=== PATIENT | female | born 1940 | race Caucasian/White ===

== ENCOUNTER 2022-02-24 12:24 | Inpatient (IN) ==
[2022-02-24] MEDS ORDERED: DILTIAZEM 25 MG/5 ML VIAL IV STA (12:46)
[2022-02-24] MEDS: DILTIAZEM INJ 100 MG in SODIUM CHLORIDE 0.9% 100 ML IV SCH (14:06)
[2022-02-24 14:21] LABS: Bilirubin,Urine Small mg/dL (Negative); Blood, Urine Large mg/dL (Negative); Glucose,Urine (UA) Negative (Negative); Ketones,Urine Negative (Negative); Nitrite,Urine Negative (Negative); Protein,Urine 100 mg/dL (Negative); Urine Appearance Cloudy (Clear); Urine Color Yellow (Yellow); Urine Specific Gravity 1.025 (1.001-1.035); Urine pH 5.5 (4.5-8.0)
[2022-02-24 14:25] LABS: Bacteria,Urine Many /HPF (Few); RBC,Urine 16 /HPF (0-4); Squamous Epithelial Cell,Urine Many /HPF (0-10)
[2022-02-24 14:32] LABS: Barbiturates Screen,Urine Negative (Negative); Benzodiazepines Screen,Urine Negative (Negative); Cannabinoid Screen,Urine Negative (Negative); Opiate Screen,Urine Negative (Negative); Phencyclidine Screen,Urine Negative (Negative)
[2022-02-24 14:42] LABS: Basophils % 0.2 % (0.0-0.8); Hematocrit 31.4 VOL% (35.7-47.0); Immature Granulocytes % 1.3 %; Immature Granulocytes Absolute 0.29 #; Lymphocytes # 0.7 10*3/uL (1.4-4.0); Lymphocytes % 3.2 % (21.3-54.2); Mean Corpuscular HGB Conc 31.8 GM/DL (32-36); Mean Corpuscular Volume 83.3 FL (87-102); Mean Platelet Volume 10.9 FL (9.6-12.0); Monocytes # 0.4 10*3/uL (0.11-0.8); Monocytes % 1.8 % (1.7-12.7); NRBC # 0.14 10*3/uL; Neutrophils % 93.5 % (38.7-73.9); Platelet Count 533 T/CUMM (130-400); Red Blood Count 3.77 MC/CUMM (3.8-5.5); Red Cell Distribution Width 17.1 % (9.3-17.3); White Blood Count 21.6 T/CUMM (4-12)
[2022-02-24 14:53] LABS: INR 1.2; PT Patient Result 12.9 SECS (10.1-12.1); Partial Thromboplastin Time 27.6 SECS (23.7-32.9)
[2022-02-24 15:06] LABS: Band Neutrophils 10 % (0-10); Lymphocytes 1 % (20-55); Nucleated Red Blood Cells 1 /100 WBC (0-5)
[2022-02-24 15:07] LABS: Burr Cells Few; Ovalocytes Slight; Platelet Estimate Increased; Polychromasia Slight; Total Cells Counted 100
[2022-02-24] MEDS ORDERED: SODIUM CHLORIDE 0.9% 1,000 ML IV STA ×2 (15:17→16:06)
[2022-02-24] MEDS ORDERED: DEXTROSE 10% 250 ML BAG IV PRN (15:18)
[2022-02-24] MEDS ORDERED: ALBUTEROL 2.5 MG/3 ML NEB RESP TX PRN (15:18)
[2022-02-24] MEDS ORDERED: SIMETHICONE CHEW 125 MG TABLET PO PRN (15:18)
[2022-02-24] MEDS ORDERED: GLUCAGON 1 MG VIAL IM PRN (15:18)
[2022-02-24] MEDS ORDERED: ONDANSETRON 4 MG/2 ML VIAL IV PRN (15:18)
[2022-02-24] MEDS ORDERED: ALUMINUM/MAGNES/SIMETH MAX STR 30 ML UDCUP PO PRN (15:18)
[2022-02-24] MEDS ORDERED: CALCIUM CARBONATE CHEW 500 MG TABLET PO PRN (15:18)
[2022-02-24] MEDS ORDERED: LACTULOSE 20 GM/30 ML UDCUP PO PRN (15:18)
[2022-02-24 15:19] LABS: Albumin 2.5 G/DL (3.4-5.0); Bilirubin,Total 1.1 MG/DL (0.20-1.00); Calcium 8.8 MG/DL (8.5-10.1); Osmolality,Calculated 282.5 MOS/KG (273-304); Potassium 3.9 MMOL/L (3.5-5.1); Thyroid Stimulating Hormone 1.48 uIU/ml (0.358-3.74); Total Protein 6.3 G/DL (6.4-8.2)
[2022-02-24] MEDS ORDERED: ENOXAPARIN 100 MG/ML SYRINGE SUBCUT STA (15:47)
[2022-02-24] MEDS ORDERED: cefTRIAXone 1,000 MG in SODIUM CHLORIDE 0.9% 100 ML IV SCH (16:00)
[2022-02-24] MEDS ORDERED: hydrALAZINE 20 MG/1 ML VIAL IV PRN (16:03)
[2022-02-24 16:10] LABS: % Iron Saturation 5.1 % (18-50)
[2022-02-24 16:17] LABS: Folate 19.58 NG/ML (5.38-24.0)
[2022-02-24] MEDS: LACTATED RINGERS 1,000 ML IV SCH (18:44)
[2022-02-24] MEDS: DONEPEZIL 5 MG TABLET PO SCH (21:41)
[2022-02-24] MEDS: DOCUSATE SODIUM 100 MG CAPSULE PO SCH (21:41)
[2022-02-25] MEDS: LACTATED RINGERS 1,000 ML IV SCH ×3 (00:42→10:57)
[2022-02-25 05:40] LABS: Basophils % 0.1 % (0.0-0.8); Eosinophils % 0.1 % (0.00-10.9); Hemoglobin 7.2 GM/DL (12.0-16.0); Immature Granulocytes % 2.2 %; Immature Granulocytes Absolute 0.39 #; Lymphocytes % 5.8 % (21.3-54.2); Mean Corpuscular HGB Conc 32.7 GM/DL (32-36); Mean Corpuscular Volume 81.2 FL (87-102); Mean Platelet Volume 10.9 FL (9.6-12.0); Monocytes # 1.5 10*3/uL (0.11-0.8); Monocytes % 8.2 % (1.7-12.7); NRBC # 0.16 10*3/uL; Neutrophils % 83.6 % (38.7-73.9); Platelet Count 347 T/CUMM (130-400); Red Blood Count 2.71 MC/CUMM (3.8-5.5); White Blood Count 17.9 T/CUMM (4-12)
[2022-02-25] MEDS: LEVOTHYROXINE 50 MCG TABLET PO SCH (06:00)
[2022-02-25 06:04] LABS: Albumin 1.8 G/DL (3.4-5.0); Bilirubin,Direct 0.55 MG/DL (0.0-0.20); Bilirubin,Indirect 0.2 MG/DL (0.0-1.0); Bilirubin,Total 0.7 MG/DL (0.20-1.00); Total Protein 5.2 G/DL (6.4-8.2)
[2022-02-25 06:05] LABS: Blood Urea Nitrogen 73 MG/DL (7-18); Calcium 7.9 MG/DL (8.5-10.1); Carbon Dioxide 19 MMOL/L (21-32); Chloride 105 MMOL/L (98-107); Cholesterol 76 MG/DL (50-200); Glucose 79 MG/DL (74-106); HDL Cholesterol < 10 MG/DL (40-60); Osmolality,Calculated 290.1 MOS/KG (273-304); Potassium 3.1 MMOL/L (3.5-5.1); Sodium 135 MMOL/L (136-145); Triglycerides 177 MG/DL (2-150); VLDL Cholesterol 35.4 MG/DL
[2022-02-25] MEDS: POTASSIUM CHLORIDE 20 MEQ TABLET PO PRN (06:20)
[2022-02-25 06:41] LABS: Hepatitis B Core IgM Quant 0.14 Index; Hepatitis B Surface Ag Quant < 0.10 Index; Hepatitis B Surface Ag Result Non-Reactive (NonReactive); Hepatitis C Virus Ab Quant < 0.02 Index; Hepatitis C Virus Ab Result Non-Reactive (NonReactive)
[2022-02-25] MEDS ORDERED: FERRIC GLUCONATE COMPLEX 125 MG in SODIUM CHLORIDE 0.9% 100 ML IV ONE (08:20)
[2022-02-25] MEDS ORDERED: ATORVASTATIN 20 MG TABLET PO SCH (09:00)
[2022-02-25] MEDS ORDERED: ASPIRIN CHEW 81 MG TABLET PO SCH (09:00)
[2022-02-25] MEDS ORDERED: CLOPIDOGREL 75 MG TABLET PO SCH (09:00)
[2022-02-25] MEDS ORDERED: PANTOPRAZOLE 40 MG TABLET PO SCH (09:00)
[2022-02-25] MEDS: METOPROLOL TARTRATE 25 MG TABLET PO SCH ×2 (09:05→20:15)
[2022-02-25] MEDS: FENOFIBRATE 145 MG TABLET PO SCH (09:06)
[2022-02-25] MEDS: DOCUSATE SODIUM 100 MG CAPSULE PO SCH ×2 (09:06→20:15)
[2022-02-25] MEDS: amLODIPine 5 MG TABLET PO SCH (09:06)
[2022-02-25] MEDS: CHOLECALCIFEROL 1,000 UNIT TABLET PO SCH (09:09)
[2022-02-25] MEDS: POTASSIUM CHLORIDE RIDER 10 MEQ/100 ML PREMIX IV SCH ×4 (09:09→14:06)
[2022-02-25 12:08] LABS: Hematocrit 20.5 VOL% (35.7-47.0); Hemoglobin 6.5 GM/DL (12.0-16.0)
[2022-02-25] MEDS ORDERED: SODIUM CHLORIDE 0.9% 1,000 ML IV PRN (12:25)
[2022-02-25] MEDS: DILTIAZEM INJ 100 MG in SODIUM CHLORIDE 0.9% 100 ML IV SCH (14:06)
[2022-02-25] MEDS ORDERED: DICLOFENAC 1% GEL 100 GM TUBE TOP PRN (15:40)
[2022-02-25] MEDS: ACETAMINOPHEN 325 MG TABLET PO PRN (15:44)
[2022-02-25] MEDS ORDERED: cefTRIAXone 2,000 MG in SODIUM CHLORIDE 0.9% 100 ML IV SCH (16:00)
[2022-02-25] MEDS: LIDOCAINE 5% PATCH TRANSDERM SCH (18:15)
[2022-02-25 18:56] LABS: Hematocrit 22.5 VOL% (35.7-47.0); Hemoglobin 7.3 GM/DL (12.0-16.0)
[2022-02-25] MEDS: DONEPEZIL 5 MG TABLET PO SCH (20:15)
[2022-02-26] MEDS: ACETAMINOPHEN 325 MG TABLET PO PRN (01:09)
[2022-02-26] MEDS: LACTATED RINGERS 1,000 ML IV SCH ×2 (01:12→21:43)
[2022-02-26 06:25] LABS: Basophils % 0.1 % (0.0-0.8); Hematocrit 19.1 VOL% (35.7-47.0); Hemoglobin 6.5 GM/DL (12.0-16.0); Immature Granulocytes % 4.3 %; Immature Granulocytes Absolute 1.15 #; Lymphocytes # 0.7 10*3/uL (1.4-4.0); Lymphocytes % 2.7 % (21.3-54.2); Mean Corpuscular Volume 81.6 FL (87-102); Mean Platelet Volume 11.4 FL (9.6-12.0); Monocytes # 1.5 10*3/uL (0.11-0.8); Monocytes % 5.5 % (1.7-12.7); NRBC # 0.43 10*3/uL; Neutrophils % 87.4 % (38.7-73.9); Platelet Count 385 T/CUMM (130-400); Red Blood Count 2.34 MC/CUMM (3.8-5.5); Red Cell Distribution Width 16.9 % (9.3-17.3); White Blood Count 27.1 T/CUMM (4-12)
[2022-02-26] MEDS: LEVOTHYROXINE 50 MCG TABLET PO SCH (06:39)
[2022-02-26] MEDS: POTASSIUM CHLORIDE 20 MEQ TABLET PO PRN (06:39)
[2022-02-26 06:51] LABS: Calcium 7.6 MG/DL (8.5-10.1); Osmolality,Calculated 310.2 MOS/KG (273-304); Potassium 4.4 MMOL/L (3.5-5.1)
[2022-02-26] MEDS ORDERED: SODIUM CHLORIDE 0.9% 1,000 ML IV PRN ×2 (07:49→11:01)
[2022-02-26 07:53] LABS: Lymphocytes 6 % (20-55); Nucleated Red Blood Cells 2 /100 WBC (0-5); Platelet Estimate Normal; Total Cells Counted 100
[2022-02-26 08:22] LABS: Albumin 1.7 G/DL (3.4-5.0); Bilirubin,Direct 0.62 MG/DL (0.0-0.20); Bilirubin,Indirect 0.4 MG/DL (0.0-1.0); Total Protein 4.8 G/DL (6.4-8.2)
[2022-02-26] MEDS: PANTOPRAZOLE INJ 200 MG in SODIUM CHLORIDE 0.9% 250 ML IV SCH (09:22)
[2022-02-26] MEDS: CHOLECALCIFEROL 1,000 UNIT TABLET PO SCH (09:23)
[2022-02-26] MEDS: SODIUM BICARBONATE 650 MG TABLET PO SCH ×3 (09:23→21:42)
[2022-02-26] MEDS: DOCUSATE SODIUM 100 MG CAPSULE PO SCH ×2 (09:23→21:42)
[2022-02-26] MEDS: FENOFIBRATE 145 MG TABLET PO SCH (09:23)
[2022-02-26] MEDS: FERROUS SULFATE 325 MG TABLET PO SCH ×2 (09:23→21:43)
[2022-02-26] MEDS: amLODIPine 5 MG TABLET PO SCH (09:23)
[2022-02-26] MEDS: METOPROLOL TARTRATE 25 MG TABLET PO SCH ×2 (09:23→21:43)
[2022-02-26] MEDS: LIDOCAINE 5% PATCH TRANSDERM SCH (09:54)
[2022-02-26] MEDS: INSULIN LISPRO 100 UNIT/ML SUBCUT SCH ×4 (10:05→21:45)
[2022-02-26] MEDS ORDERED: INSULIN LISPRO 100 UNIT/ML SUBCUT ONE (11:02)
[2022-02-26] MEDS ORDERED: FUROSEMIDE 20 MG/2 ML VIAL IV ONE (12:00)
[2022-02-26] MEDS: MEROPENEM 500 MG in SODIUM CHLORIDE 0.9% 100 ML IV SCH ×2 (13:50→17:56)
[2022-02-26] MEDS ORDERED: AMIODARONE 200 MG TABLET PO SCH (21:00)
[2022-02-26] MEDS: DONEPEZIL 5 MG TABLET PO SCH (21:42)
[2022-02-27] MEDS: MEROPENEM 500 MG in SODIUM CHLORIDE 0.9% 100 ML IV SCH ×3 (02:09→18:03)
[2022-02-27] MEDS: LEVOTHYROXINE 50 MCG TABLET PO SCH (06:08)
[2022-02-27 06:23] LABS: Basophils # 0.1 10*3/uL (0.0-0.2); Basophils % 0.4 % (0.0-0.8); Eosinophils # 0.2 10*3/uL (0.0-0.87); Eosinophils % 0.9 % (0.00-10.9); Hematocrit 22.6 VOL% (35.7-47.0); Hemoglobin 7.6 GM/DL (12.0-16.0); Immature Granulocytes % 8.2 %; Lymphocytes # 1.8 10*3/uL (1.4-4.0); Lymphocytes % 7.5 % (21.3-54.2); Mean Corpuscular HGB Conc 33.6 GM/DL (32-36); Mean Corpuscular Volume 82.5 FL (87-102); Mean Platelet Volume 11.6 FL (9.6-12.0); Monocytes # 2.1 10*3/uL (0.11-0.8); Monocytes % 8.9 % (1.7-12.7); NRBC # 0.22 10*3/uL; Neutrophils % 74.1 % (38.7-73.9); Platelet Count 298 T/CUMM (130-400); Red Blood Count 2.74 MC/CUMM (3.8-5.5); Red Cell Distribution Width 16.7 % (9.3-17.3); White Blood Count 23.2 T/CUMM (4-12)
[2022-02-27 06:41] LABS: Calcium 7.8 MG/DL (8.5-10.1); Osmolality,Calculated 310.8 MOS/KG (273-304)
[2022-02-27 06:48] LABS: Albumin 1.5 G/DL (3.4-5.0); Bilirubin,Direct 0.44 MG/DL (0.0-0.20); Bilirubin,Indirect 0.2 MG/DL (0.0-1.0); Bilirubin,Total 0.6 MG/DL (0.20-1.00); Total Protein 4.8 G/DL (6.4-8.2)
[2022-02-27 06:53] LABS: Band Neutrophils 1 % (0-10); Eosinophils 3 % (0-10); Lymphocytes 11 % (20-55); Nucleated Red Blood Cells 1 /100 WBC (0-5); Total Cells Counted 100
[2022-02-27 06:54] LABS: Platelet Estimate Normal
[2022-02-27] MEDS: DOCUSATE SODIUM 100 MG CAPSULE PO SCH ×2 (08:42→21:15)
[2022-02-27] MEDS: FENOFIBRATE 145 MG TABLET PO SCH (08:42)
[2022-02-27] MEDS: FERROUS SULFATE 325 MG TABLET PO SCH ×2 (08:42→21:16)
[2022-02-27] MEDS: CHOLECALCIFEROL 1,000 UNIT TABLET PO SCH (08:42)
[2022-02-27] MEDS: INSULIN LISPRO 100 UNIT/ML SUBCUT SCH ×4 (08:42→21:18)
[2022-02-27] MEDS: METOPROLOL TARTRATE 25 MG TABLET PO SCH ×2 (08:42→21:16)
[2022-02-27] MEDS: PANTOPRAZOLE INJ 200 MG in SODIUM CHLORIDE 0.9% 250 ML IV SCH (08:43)
[2022-02-27] MEDS: LIDOCAINE 5% PATCH TRANSDERM SCH (08:43)
[2022-02-27] MEDS: amLODIPine 5 MG TABLET PO SCH (09:56)
[2022-02-27] MEDS ORDERED: TUBERCULIN SKIN TEST 0.1 ML SYRINGE INTRADERM ONE (10:00)
[2022-02-27] MEDS: LACTATED RINGERS 1,000 ML IV SCH (16:53)
[2022-02-27] MEDS: DONEPEZIL 5 MG TABLET PO SCH (21:16)
[2022-02-28] MEDS: MEROPENEM 500 MG in SODIUM CHLORIDE 0.9% 100 ML IV SCH ×3 (02:20→17:55)
[2022-02-28 06:07] LABS: Basophils # 0.1 10*3/uL (0.0-0.2); Basophils % 0.4 % (0.0-0.8); Eosinophils # 0.3 10*3/uL (0.0-0.87); Eosinophils % 1.3 % (0.00-10.9); Hematocrit 25.3 VOL% (35.7-47.0); Hemoglobin 8.1 GM/DL (12.0-16.0); Immature Granulocytes % 11.4 %; Immature Granulocytes Absolute 2.73 #; Lymphocytes # 1.4 10*3/uL (1.4-4.0); Lymphocytes % 5.7 % (21.3-54.2); Mean Corpuscular Volume 85.8 FL (87-102); Mean Platelet Volume 11.8 FL (9.6-12.0); Monocytes # 1.8 10*3/uL (0.11-0.8); Monocytes % 7.5 % (1.7-12.7); NRBC # 0.11 10*3/uL; Neutrophils % 73.7 % (38.7-73.9); Platelet Count 334 T/CUMM (130-400); Red Blood Count 2.95 MC/CUMM (3.8-5.5); Red Cell Distribution Width 17.6 % (9.3-17.3)
[2022-02-28 06:29] LABS: Albumin 1.8 G/DL (3.4-5.0); Bilirubin,Direct 0.28 MG/DL (0.0-0.20); Bilirubin,Indirect 0.3 MG/DL (0.0-1.0); Bilirubin,Total 0.6 MG/DL (0.20-1.00); Total Protein 5.3 G/DL (6.4-8.2)
[2022-02-28 06:30] LABS: Band Neutrophils 3 % (0-10); Hypochromia Slight; Lymphocytes 8 % (20-55); Microcytosis Slight; Nucleated Red Blood Cells 1 /100 WBC (0-5); Platelet Estimate Adequate; Total Cells Counted 100
[2022-02-28] MEDS: LEVOTHYROXINE 50 MCG TABLET PO SCH (06:36)
[2022-02-28 07:26] LABS: Calcium 8.2 MG/DL (8.5-10.1); Potassium 4.5 MMOL/L (3.5-5.1)
[2022-02-28] MEDS ORDERED: ETOMIDATE 20 MG/10 ML VIAL IV ONE (09:38)
[2022-02-28] MEDS ORDERED: propofoL 200 MG/20 ML VIAL IV ONE (09:38)
[2022-02-28] MEDS ORDERED: LIDOCAINE 2% 5 ML VIAL ONE (09:38)
[2022-02-28] MEDS: amLODIPine 5 MG TABLET PO SCH (10:38)
[2022-02-28] MEDS: DOCUSATE SODIUM 100 MG CAPSULE PO SCH ×2 (10:38→20:44)
[2022-02-28] MEDS: METOPROLOL TARTRATE 25 MG TABLET PO SCH ×2 (10:38→20:44)
[2022-02-28] MEDS: CHOLECALCIFEROL 1,000 UNIT TABLET PO SCH (10:38)
[2022-02-28] MEDS: FERROUS SULFATE 325 MG TABLET PO SCH ×2 (10:38→20:44)
[2022-02-28] MEDS: INSULIN LISPRO 100 UNIT/ML SUBCUT SCH ×4 (10:39→20:44)
[2022-02-28] MEDS: LIDOCAINE 5% PATCH TRANSDERM SCH (10:39)
[2022-02-28] MEDS: PANTOPRAZOLE INJ 200 MG in SODIUM CHLORIDE 0.9% 250 ML IV SCH (10:58)
[2022-02-28] MEDS: LACTATED RINGERS 1,000 ML IV SCH (12:25)
[2022-02-28] MEDS: FENOFIBRATE 145 MG TABLET PO SCH (12:25)
[2022-02-28] MEDS: PANTOPRAZOLE 40 MG VIAL IV SCH (20:44)
[2022-02-28] MEDS: DONEPEZIL 5 MG TABLET PO SCH (20:44)
[2022-02-28] MEDS: MENTHOL/ZINC OXIDE OINT 71 GM JAR TOP SCH (20:44)
[2022-03-01] MEDS: MEROPENEM 500 MG in SODIUM CHLORIDE 0.9% 100 ML IV SCH ×2 (02:11→12:36)
[2022-03-01 05:48] LABS: Basophils # 0.1 10*3/uL (0.0-0.2); Basophils % 0.4 % (0.0-0.8); Eosinophils # 0.4 10*3/uL (0.0-0.87); Eosinophils % 2.2 % (0.00-10.9); Hematocrit 22.3 VOL% (35.7-47.0); Hemoglobin 7.2 GM/DL (12.0-16.0); Immature Granulocytes Absolute 2.06 #; Lymphocytes # 1.3 10*3/uL (1.4-4.0); Lymphocytes % 7.6 % (21.3-54.2); Mean Corpuscular HGB Conc 32.3 GM/DL (32-36); Mean Corpuscular Volume 85.1 FL (87-102); Mean Platelet Volume 11.4 FL (9.6-12.0); Monocytes # 1.4 10*3/uL (0.11-0.8); Monocytes % 8.2 % (1.7-12.7); Neutrophils % 69.6 % (38.7-73.9); Platelet Count 353 T/CUMM (130-400); Red Blood Count 2.62 MC/CUMM (3.8-5.5); Red Cell Distribution Width 18.9 % (9.3-17.3); White Blood Count 17.1 T/CUMM (4-12)
[2022-03-01 06:09] LABS: Band Neutrophils 2 % (0-10); Eosinophils 2 % (0-10); Hypochromia Slight; Lymphocytes 9 % (20-55); Myelocytes 1 %; Total Cells Counted 100
[2022-03-01 06:10] LABS: Microcytosis 1+; Ovalocytes Slight; Polychromasia Slight
[2022-03-01 06:18] LABS: Calcium 8.2 MG/DL (8.5-10.1); Osmolality,Calculated 302.5 MOS/KG (273-304); Potassium 4.8 MMOL/L (3.5-5.1)
[2022-03-01 06:27] LABS: Albumin 1.8 G/DL (3.4-5.0); Bilirubin,Direct 0.33 MG/DL (0.0-0.20); Bilirubin,Indirect 0.3 MG/DL (0.0-1.0); Bilirubin,Total 0.6 MG/DL (0.20-1.00); Total Protein 5.3 G/DL (6.4-8.2)
[2022-03-01] MEDS: LEVOTHYROXINE 50 MCG TABLET PO SCH (06:36)
[2022-03-01] MEDS ORDERED: SODIUM CHLORIDE 0.9% 1,000 ML IV PRN (06:58)
[2022-03-01] MEDS ORDERED: FUROSEMIDE 20 MG/2 ML VIAL IV PRN (06:58)
[2022-03-01] MEDS: INSULIN LISPRO 100 UNIT/ML SUBCUT SCH ×5 (08:31→21:23)
[2022-03-01] MEDS: amLODIPine 5 MG TABLET PO SCH (09:08)
[2022-03-01] MEDS: FERROUS SULFATE 325 MG TABLET PO SCH ×2 (09:09→21:22)
[2022-03-01] MEDS: METOPROLOL TARTRATE 25 MG TABLET PO SCH ×2 (09:09→21:22)
[2022-03-01] MEDS: CHOLECALCIFEROL 1,000 UNIT TABLET PO SCH (09:09)
[2022-03-01] MEDS: DOCUSATE SODIUM 100 MG CAPSULE PO SCH ×2 (09:09→21:23)
[2022-03-01] MEDS: LIDOCAINE 5% PATCH TRANSDERM SCH (09:11)
[2022-03-01] MEDS: PANTOPRAZOLE 40 MG VIAL IV SCH ×2 (09:11→21:24)
[2022-03-01] MEDS: FENOFIBRATE 145 MG TABLET PO SCH (09:16)
[2022-03-01] MEDS: MENTHOL/ZINC OXIDE OINT 71 GM JAR TOP SCH ×2 (12:07→21:23)
[2022-03-01] MEDS: LISINOPRIL/HCTZ 20-12.5 MG TABLET PO SCH (12:51)
[2022-03-01] MEDS ORDERED: FUROSEMIDE 20 MG/2 ML VIAL IV ONE ×2 (14:53→17:54)
[2022-03-01] MEDS: DONEPEZIL 5 MG TABLET PO SCH (21:22)
[2022-03-01] MEDS: ASCORBIC ACID 500 MG TABLET PO SCH (21:23)
[2022-03-01] MEDS: CEFUROXIME 500 MG TABLET PO SCH (21:27)
[2022-03-02 06:11] LABS: Basophils # 0.1 10*3/uL (0.0-0.2); Basophils % 0.8 % (0.0-0.8); Eosinophils # 0.5 10*3/uL (0.0-0.87); Eosinophils % 3.4 % (0.00-10.9); Hematocrit 31.3 VOL% (35.7-47.0); Hemoglobin 10.2 GM/DL (12.0-16.0); Immature Granulocytes % 10.9 %; Immature Granulocytes Absolute 1.57 #; Lymphocytes # 1.1 10*3/uL (1.4-4.0); Lymphocytes % 7.7 % (21.3-54.2); Mean Corpuscular HGB Conc 32.6 GM/DL (32-36); Mean Corpuscular Volume 88.4 FL (87-102); Mean Platelet Volume 11.3 FL (9.6-12.0); Monocytes # 1.2 10*3/uL (0.11-0.8); Monocytes % 8.5 % (1.7-12.7); NRBC # 0.02 10*3/uL; Neutrophils % 68.7 % (38.7-73.9); Platelet Count 327 T/CUMM (130-400); Red Blood Count 3.54 MC/CUMM (3.8-5.5); Red Cell Distribution Width 19.2 % (9.3-17.3); White Blood Count 14.4 T/CUMM (4-12)
[2022-03-02 06:33] LABS: Band Neutrophils 2 % (0-10); Eosinophils 3 % (0-10); Hypochromia 1+; Lymphocytes 9 % (20-55); Metamyelocytes 2 %; Microcytosis 1+; Platelet Estimate Normal; Target Cells Slight; Total Cells Counted 100
[2022-03-02] MEDS: LEVOTHYROXINE 50 MCG TABLET PO SCH (06:33)
[2022-03-02 06:42] LABS: Albumin 1.8 G/DL (3.4-5.0); Bilirubin,Total 0.5 MG/DL (0.20-1.00); Osmolality,Calculated 296.5 MOS/KG (273-304); Potassium 4.3 MMOL/L (3.5-5.1); Total Protein 5.4 G/DL (6.4-8.2)
[2022-03-02 06:51] LABS: Calcium 8.4 MG/DL (8.5-10.1); Osmolality,Calculated 290.1 MOS/KG (273-304); Potassium 4.1 MMOL/L (3.5-5.1)
[2022-03-02] MEDS: MENTHOL/ZINC OXIDE OINT 71 GM JAR TOP SCH (10:43)
[2022-03-02] MEDS: CEFUROXIME 500 MG TABLET PO SCH (10:43)
[2022-03-02] MEDS: METOPROLOL TARTRATE 25 MG TABLET PO SCH (10:44)
[2022-03-02] MEDS: ASCORBIC ACID 500 MG TABLET PO SCH (10:44)
[2022-03-02] MEDS: LISINOPRIL/HCTZ 20-12.5 MG TABLET PO SCH (10:44)
[2022-03-02] MEDS: DOCUSATE SODIUM 100 MG CAPSULE PO SCH (10:44)
[2022-03-02] MEDS: FERROUS SULFATE 325 MG TABLET PO SCH (10:44)
[2022-03-02] MEDS: LIDOCAINE 5% PATCH TRANSDERM SCH (10:48)
[2022-03-02] MEDS: CHOLECALCIFEROL 1,000 UNIT TABLET PO SCH (10:48)
[2022-03-02] MEDS: hydrALAZINE 25 MG TABLET PO SCH ×2 (10:48→16:28)
[2022-03-02] MEDS: FENOFIBRATE 145 MG TABLET PO SCH (10:48)
[2022-03-02] MEDS: PANTOPRAZOLE 40 MG VIAL IV SCH (10:49)
[2022-03-02] MEDS: amLODIPine 5 MG TABLET PO SCH (11:04)
[2022-03-02] MEDS: INSULIN LISPRO 100 UNIT/ML SUBCUT SCH ×3 (11:05→16:32)
[2022-03-02 16:35] VITALS: BP 154/75
[2022-03-03] MEDS ORDERED: amLODIPine 10 MG TABLET PO SCH (09:00)
== END 2022-03-02 16:36 | DRG 871 ==
LOC: N.ED 12:24 → N.EDINP 15:15 → SUATTDRO 15:15 → N.EDINP 17:15 → N.TELEN 17:34
PROVIDERS: ADMIT Emergency Medicine; ATTEND Family Medicine

== ENCOUNTER 2022-03-09 16:45 | Observation (INO) ==
[2022-03-09] MEDS ORDERED: SODIUM CHLORIDE 0.9% 1,000 ML IV STA (17:55)
[2022-03-09 18:18] LABS: Basophils # 0.1 10*3/uL (0.0-0.2); Basophils % 0.3 % (0.0-0.8); Eosinophils # 0.1 10*3/uL (0.0-0.87); Eosinophils % 0.6 % (0.00-10.9); Hemoglobin 7.3 GM/DL (12.0-16.0); Immature Granulocytes % 0.9 %; Immature Granulocytes Absolute 0.13 #; Lymphocytes # 1.1 10*3/uL (1.4-4.0); Lymphocytes % 7.1 % (21.3-54.2); Mean Corpuscular HGB Conc 30.4 GM/DL (32-36); Mean Corpuscular Volume 91.3 FL (87-102); Mean Platelet Volume 9.9 FL (9.6-12.0); Monocytes # 0.8 10*3/uL (0.11-0.8); Monocytes % 5.4 % (1.7-12.7); Neutrophils % 85.7 % (38.7-73.9); Platelet Count 575 T/CUMM (130-400); Red Blood Count 2.63 MC/CUMM (3.8-5.5); White Blood Count 15.3 T/CUMM (4-12)
[2022-03-09 18:36] LABS: Albumin 1.9 G/DL (3.4-5.0); Bilirubin,Total 0.4 MG/DL (0.20-1.00); Calcium 8.4 MG/DL (8.5-10.1); Osmolality,Calculated 288.5 MOS/KG (273-304); Potassium 4.8 MMOL/L (3.5-5.1); Total Protein 5.1 G/DL (6.4-8.2)
[2022-03-09 18:52] LABS: INR 1.1; PT Patient Result 12.4 SECS (10.1-12.1); Partial Thromboplastin Time 27.9 SECS (23.7-32.9)
[2022-03-09] MEDS ORDERED: GLUCAGON 1 MG VIAL IM PRN (20:07)
[2022-03-09] MEDS ORDERED: DEXTROSE 10% 250 ML BAG IV PRN (20:07)
[2022-03-09] MEDS ORDERED: ACETAMINOPHEN 325 MG TABLET PO PRN (20:17)
[2022-03-09] MEDS ORDERED: ONDANSETRON 4 MG/2 ML VIAL IV PRN (20:17)
[2022-03-09] MEDS: PANTOPRAZOLE 40 MG VIAL IV SCH (23:55)
[2022-03-10] MEDS: LEVOTHYROXINE 50 MCG TABLET PO SCH (06:18)
[2022-03-10 07:55] LABS: Albumin 1.9 G/DL (3.4-5.0); Bilirubin,Total 0.4 MG/DL (0.20-1.00); Calcium 8.5 MG/DL (8.5-10.1); Osmolality,Calculated 291.5 MOS/KG (273-304); Potassium 4.4 MMOL/L (3.5-5.1); Total Protein 5.2 G/DL (6.4-8.2)
[2022-03-10] MEDS ORDERED: POLYETHYLENE GLYCOL POWDER 17 GM PACK PO SCH (09:00)
[2022-03-10] MEDS: LORazepam 1 MG TABLET PO SCH ×2 (09:08→21:37)
[2022-03-10] MEDS: SERTRALINE 25 MG TABLET PO SCH (09:09)
[2022-03-10] MEDS: PANTOPRAZOLE 40 MG VIAL IV SCH ×2 (09:09→21:35)
[2022-03-10] MEDS ORDERED: SODIUM CHLORIDE 0.9% 1,000 ML IV PRN (13:30)
[2022-03-10] MEDS: BISACODYL 5 MG TABLET PO SCH ×2 (16:42→21:37)
[2022-03-10] MEDS ORDERED: POLYETHYLENE GLYCOL POWDER 255 GM BOTTLE PO ONE (18:00)
[2022-03-10] MEDS ORDERED: MAGNESIUM CITRATE 300 ML BOTTLE PO ONE (21:00)
[2022-03-10] MEDS ORDERED: MAGNESIUM HYDROXIDE SUSP 30 ML UDCUP PO ONE (21:00)
[2022-03-11] MEDS: BISACODYL 5 MG TABLET PO SCH (05:04)
[2022-03-11 05:13] LABS: Basophils # 0.1 10*3/uL (0.0-0.2); Basophils % 1.4 % (0.0-0.8); Eosinophils % 0.3 % (0.00-10.9); Hematocrit 26.2 VOL% (35.7-47.0); Hemoglobin 8.3 GM/DL (12.0-16.0); Immature Granulocytes % 1.2 %; Immature Granulocytes Absolute 0.08 #; Lymphocytes # 1.1 10*3/uL (1.4-4.0); Lymphocytes % 16.8 % (21.3-54.2); Mean Corpuscular HGB Conc 31.7 GM/DL (32-36); Mean Corpuscular Volume 86.8 FL (87-102); Mean Platelet Volume 10.4 FL (9.6-12.0); Monocytes # 0.5 10*3/uL (0.11-0.8); Monocytes % 7.9 % (1.7-12.7); Neutrophils % 72.4 % (38.7-73.9); Platelet Count 444 T/CUMM (130-400); Red Blood Count 3.02 MC/CUMM (3.8-5.5); Red Cell Distribution Width 18.7 % (9.3-17.3); White Blood Count 6.6 T/CUMM (4-12)
[2022-03-11 05:54] LABS: Albumin 2.1 G/DL (3.4-5.0); Bilirubin,Total 0.6 MG/DL (0.20-1.00); Calcium 8.8 MG/DL (8.5-10.1); Osmolality,Calculated 295.3 MOS/KG (273-304); Potassium 3.9 MMOL/L (3.5-5.1); Total Protein 5.8 G/DL (6.4-8.2)
[2022-03-11] MEDS: LEVOTHYROXINE 50 MCG TABLET PO SCH (06:16)
[2022-03-11] MEDS ORDERED: propofoL 200 MG/20 ML VIAL IV ONE ×2 (10:55→11:16)
[2022-03-11] MEDS ORDERED: LIDOCAINE 2% 5 ML VIAL ONE (10:55)
[2022-03-11] MEDS: PANTOPRAZOLE 40 MG VIAL IV SCH ×2 (12:47→21:53)
[2022-03-11] MEDS: SERTRALINE 25 MG TABLET PO SCH (12:47)
[2022-03-11] MEDS: LORazepam 1 MG TABLET PO SCH ×2 (12:48→21:53)
[2022-03-11] MEDS: ZINC OXIDE 16% PASTE 57 GM TUBE TOP PRN (12:51)
[2022-03-11] MEDS: SUCRALFATE 1 GM/10 ML UDCUP PO SCH ×2 (16:38→21:53)
[2022-03-12 05:29] LABS: Basophils # 0.1 10*3/uL (0.0-0.2); Basophils % 0.7 % (0.0-0.8); Eosinophils # 0.2 10*3/uL (0.0-0.87); Eosinophils % 2.5 % (0.00-10.9); Hematocrit 25.3 VOL% (35.7-47.0); Hemoglobin 7.9 GM/DL (12.0-16.0); Immature Granulocytes % 0.7 %; Immature Granulocytes Absolute 0.06 #; Lymphocytes # 0.9 10*3/uL (1.4-4.0); Lymphocytes % 10.1 % (21.3-54.2); Mean Corpuscular HGB Conc 31.2 GM/DL (32-36); Mean Corpuscular Volume 88.5 FL (87-102); Mean Platelet Volume 10.6 FL (9.6-12.0); Monocytes # 0.7 10*3/uL (0.11-0.8); Monocytes % 7.4 % (1.7-12.7); Neutrophils % 78.6 % (38.7-73.9); Platelet Count 406 T/CUMM (130-400); Red Blood Count 2.86 MC/CUMM (3.8-5.5); Red Cell Distribution Width 18.6 % (9.3-17.3); White Blood Count 8.9 T/CUMM (4-12)
[2022-03-12 05:48] LABS: Albumin 2.4 G/DL (3.4-5.0); Bilirubin,Total 0.5 MG/DL (0.20-1.00); Calcium 8.3 MG/DL (8.5-10.1); Osmolality,Calculated 292.3 MOS/KG (273-304); Potassium 3.6 MMOL/L (3.5-5.1); Total Protein 5.9 G/DL (6.4-8.2)
[2022-03-12] MEDS: LEVOTHYROXINE 50 MCG TABLET PO SCH (05:58)
[2022-03-12] MEDS: SUCRALFATE 1 GM/10 ML UDCUP PO SCH ×4 (10:26→21:10)
[2022-03-12] MEDS: LORazepam 1 MG TABLET PO SCH ×2 (10:27→21:10)
[2022-03-12] MEDS: SERTRALINE 25 MG TABLET PO SCH (10:27)
[2022-03-12] MEDS: PANTOPRAZOLE 40 MG VIAL IV SCH (10:27)
[2022-03-12] MEDS: ZINC OXIDE 16% PASTE 57 GM TUBE TOP PRN (10:28)
[2022-03-12] MEDS ORDERED: PANTOPRAZOLE 40 MG TABLET PO SCH (19:00)
[2022-03-13 04:45] LABS: Basophils # 0.1 10*3/uL (0.0-0.2); Basophils % 0.7 % (0.0-0.8); Eosinophils # 0.2 10*3/uL (0.0-0.87); Eosinophils % 1.9 % (0.00-10.9); Hematocrit 26.2 VOL% (35.7-47.0); Hemoglobin 8.1 GM/DL (12.0-16.0); Immature Granulocytes % 0.6 %; Immature Granulocytes Absolute 0.06 #; Lymphocytes # 1.2 10*3/uL (1.4-4.0); Mean Corpuscular HGB Conc 30.9 GM/DL (32-36); Mean Corpuscular Volume 88.5 FL (87-102); Mean Platelet Volume 10.6 FL (9.6-12.0); Monocytes # 0.9 10*3/uL (0.11-0.8); Monocytes % 7.9 % (1.7-12.7); Neutrophils % 77.9 % (38.7-73.9); Platelet Count 393 T/CUMM (130-400); Red Blood Count 2.96 MC/CUMM (3.8-5.5); White Blood Count 10.7 T/CUMM (4-12)
[2022-03-13 05:05] LABS: Albumin 2.4 G/DL (3.4-5.0); Bilirubin,Total 0.5 MG/DL (0.20-1.00); Calcium 8.5 MG/DL (8.5-10.1); Osmolality,Calculated 287.5 MOS/KG (273-304); Potassium 4.1 MMOL/L (3.5-5.1); Total Protein 6.2 G/DL (6.4-8.2)
[2022-03-13] MEDS ORDERED: PANTOPRAZOLE 40 MG TABLET PO SCH (06:00)
[2022-03-13] MEDS: LEVOTHYROXINE 50 MCG TABLET PO SCH (06:02)
[2022-03-13] MEDS: LORazepam 1 MG TABLET PO SCH (08:50)
[2022-03-13] MEDS: SERTRALINE 25 MG TABLET PO SCH (08:50)
[2022-03-13] MEDS: SUCRALFATE 1 GM/10 ML UDCUP PO SCH ×2 (08:50→11:44)
[2022-03-13 14:30] VITALS: BP 151/83
== END 2022-03-13 13:40 ==
LOC: N.TELEN 16:45 → N.ED 16:45 → SUATTDRO 19:34 → N.TELEN 23:59
PROVIDERS: ADMIT Family Medicine; ATTEND Hospitalist